=== PATIENT | male | born 1945 | race Caucasian/White ===

== ENCOUNTER 2021-07-12 10:00 | Inpatient (IN) ==
[2021-07-12 10:44] LABS: Basophils % 0.6 % (0.0-0.8); Eosinophils # 0.2 10*3/uL (0.0-0.87); Eosinophils % 4.6 % (0.00-10.9); Hemoglobin 7.6 GM/DL (14.0-18.0); Immature Granulocytes % 0.6 %; Immature Granulocytes Absolute 0.02 #; Lymphocytes # 0.5 10*3/uL (1.4-4.0); Lymphocytes % 15.7 % (21.2-54.2); Mean Corpuscular HGB Conc 31.7 GM/DL (32-36); Mean Corpuscular Volume 81.9 FL (87-102); Mean Platelet Volume 8.1 FL (9.6-12.0); Monocytes % 14.2 % (1.7-12.7); Neutrophils % 64.3 % (38.7-73.9); Platelet Count 220 T/CUMM (130-400); Red Blood Count 2.93 MC/CUMM (3.8-5.5); White Blood Count 3.3 T/CUMM (4-12)
[2021-07-12 11:02] LABS: Calcium 8.4 MG/DL (8.5-10.1); Osmolality,Calculated 268.2 MOS/KG (273-304); Potassium 3.2 MMOL/L (3.5-5.1)
[2021-07-12] MEDS ORDERED: DOCUSATE SODIUM 100 MG CAPSULE PO PRN (14:11)
[2021-07-12] MEDS ORDERED: SIMETHICONE CHEW 125 MG TABLET PO PRN (14:11)
[2021-07-12] MEDS ORDERED: GLUCAGON 1 MG VIAL IM PRN (14:11)
[2021-07-12] MEDS ORDERED: hydrALAZINE 20 MG/1 ML VIAL IV PRN (14:11)
[2021-07-12] MEDS ORDERED: ONDANSETRON 4 MG/2 ML VIAL IV PRN (14:11)
[2021-07-12] MEDS ORDERED: ACETAMINOPHEN 325 MG TABLET PO PRN (14:11)
[2021-07-12] MEDS ORDERED: cloNIDine 0.1 MG TABLET PO PRN (14:19)
[2021-07-12] MEDS ORDERED: MAGNESIUM SULF RIDER 2 GM/50 ML PREMIX IV PRN (14:30)
[2021-07-12] MEDS ORDERED: MAGNESIUM SULF RIDER 4 GM/100 ML PREMIX IV PRN (14:30)
[2021-07-12] MEDS ORDERED: DEXTROSE 10% 25 GM/250 ML BAG IV PRN (14:32)
[2021-07-12 14:38] LABS: Albumin 2.5 G/DL (3.4-5.0); Bilirubin,Direct 0.19 MG/DL (0.0-0.20); Bilirubin,Indirect 0.3 MG/DL (0.0-1.0); Bilirubin,Total 0.5 MG/DL (0.20-1.00); Ferritin 43.9 ng/mL (26-388); Total Protein 5.9 G/DL (6.4-8.2)
[2021-07-12] MEDS ORDERED: POTASSIUM CHLORIDE 20 MEQ TABLET PO ONE (14:57)
[2021-07-12] MEDS: FAMOTIDINE 20 MG TABLET PO SCH ×2 (15:05→20:43)
[2021-07-12] MEDS: CHOLECALCIFEROL 5,000 UNIT TABLET PO SCH ×2 (15:06→20:42)
[2021-07-12] MEDS: PANTOPRAZOLE 40 MG TABLET PO SCH (15:06)
[2021-07-12] MEDS: ASCORBIC ACID 500 MG TABLET PO SCH ×2 (15:06→20:42)
[2021-07-12] MEDS: ZINC GLUCONATE 50 MG TABLET PO SCH (15:06)
[2021-07-12] MEDS: AZITHROMYCIN INJ 500 MG in SODIUM CHLORIDE 0.9% 250 ML IV SCH (15:06)
[2021-07-12] MEDS: CETIRIZINE 10 MG TABLET PO SCH (15:07)
[2021-07-12 15:36] LABS: Basophils % 0.8 % (0.0-0.8); Eosinophils # 0.1 10*3/uL (0.0-0.87); Eosinophils % 5.3 % (0.00-10.9); Hematocrit 21.7 VOL% (42.0-52.0); Hemoglobin 6.9 GM/DL (14.0-18.0); Immature Granulocytes % 0.4 %; Immature Granulocytes Absolute 0.01 #; Lymphocytes # 0.6 10*3/uL (1.4-4.0); Lymphocytes % 21.8 % (21.2-54.2); Mean Corpuscular HGB Conc 31.8 GM/DL (32-36); Mean Corpuscular Volume 81.3 FL (87-102); Mean Platelet Volume 7.5 FL (9.6-12.0); Monocytes % 13.4 % (1.7-12.7); Neutrophils % 58.3 % (38.7-73.9); Platelet Count 177 T/CUMM (130-400); Red Blood Count 2.67 MC/CUMM (3.8-5.5); White Blood Count 2.6 T/CUMM (4-12)
[2021-07-12] MEDS: IVERMECTIN 3 MG TABLET PO SCH (16:05)
[2021-07-12] MEDS: methylPREDNISolone SOD SUC 40 MG/1 ML VIAL IV SCH (16:06)
[2021-07-12] MEDS: cefTRIAXone 1,000 MG in SODIUM CHLORIDE 0.9% 100 ML IV SCH (16:06)
[2021-07-12] MEDS: ISOSORBIDE MONONITRATE 30 MG TABLET PO SCH (16:06)
[2021-07-12] MEDS: LACTATED RINGERS 1,000 ML IV SCH (16:08)
[2021-07-12 16:18] LABS: Eosinophils 8 % (0-10); Lymphocytes 17 % (20-55); Platelet Estimate Adequate; Segmented Neutrophils 63 % (50-85); Total Cells Counted 100
[2021-07-12 16:19] LABS: Hypochromia 2+; Ovalocytes Few
[2021-07-12] MEDS: CALCIUM (CARBONATE)/VITAMIN D 600 MG-400 UNIT TABLET PO SCH (20:42)
[2021-07-12] MEDS: ROSUVASTATIN 10 MG TABLET PO SCH (20:42)
[2021-07-12] MEDS: carvediloL 25 MG TABLET PO SCH (20:43)
[2021-07-12] MEDS: MELATONIN 3 MG TABLET PO SCH (20:43)
[2021-07-12] MEDS: GABAPENTIN 100 MG CAPSULE PO SCH (20:43)
[2021-07-13] MEDS: methylPREDNISolone SOD SUC 40 MG/1 ML VIAL IV SCH ×3 (00:33→15:43)
[2021-07-13 04:59] LABS: Hematocrit 20.7 VOL% (42.0-52.0); Hemoglobin 6.6 GM/DL (14.0-18.0); Immature Granulocytes % 0.4 %; Immature Granulocytes Absolute 0.01 #; Lymphocytes # 0.3 10*3/uL (1.4-4.0); Mean Corpuscular HGB Conc 31.9 GM/DL (32-36); Mean Corpuscular Volume 81.5 FL (87-102); Mean Platelet Volume 7.7 FL (9.6-12.0); Neutrophils % 82.6 % (38.7-73.9); Platelet Count 194 T/CUMM (130-400); Red Blood Count 2.54 MC/CUMM (3.8-5.5); Red Cell Distribution Width 13.7 % (9.3-17.3); White Blood Count 2.4 T/CUMM (4-12)
[2021-07-13 05:22] LABS: Platelet Estimate Normal
[2021-07-13 05:23] LABS: Anisocytosis 1+
[2021-07-13 05:25] LABS: Albumin 2.4 G/DL (3.4-5.0); Bilirubin,Total 0.8 MG/DL (0.20-1.00); Ferritin 48.8 ng/mL (26-388); Osmolality,Calculated 270.2 MOS/KG (273-304); Potassium 3.8 MMOL/L (3.5-5.1); Total Protein 6.1 G/DL (6.4-8.2)
[2021-07-13] MEDS: LACTATED RINGERS 1,000 ML IV SCH ×2 (05:59→20:41)
[2021-07-13] MEDS ORDERED: SODIUM CHLORIDE 0.9% 1,000 ML IV PRN (07:22)
[2021-07-13] MEDS: ASCORBIC ACID 500 MG TABLET PO SCH ×2 (10:01→20:34)
[2021-07-13] MEDS: ZINC GLUCONATE 50 MG TABLET PO SCH (10:02)
[2021-07-13] MEDS: FAMOTIDINE 20 MG TABLET PO SCH ×2 (10:02→20:35)
[2021-07-13] MEDS: CETIRIZINE 10 MG TABLET PO SCH (10:02)
[2021-07-13] MEDS: COENZYME Q10 100 MG CAPSULE PO SCH (10:02)
[2021-07-13] MEDS: CHOLECALCIFEROL 5,000 UNIT TABLET PO SCH ×2 (10:03→20:34)
[2021-07-13] MEDS: ISOSORBIDE MONONITRATE 30 MG TABLET PO SCH (10:03)
[2021-07-13] MEDS: carvediloL 25 MG TABLET PO SCH ×2 (10:03→20:34)
[2021-07-13] MEDS: CALCIUM (CARBONATE)/VITAMIN D 600 MG-400 UNIT TABLET PO SCH ×2 (10:03→20:34)
[2021-07-13] MEDS: PANTOPRAZOLE 40 MG TABLET PO SCH (10:03)
[2021-07-13] MEDS: IVERMECTIN 3 MG TABLET PO SCH (10:03)
[2021-07-13] MEDS: AZITHROMYCIN INJ 500 MG in SODIUM CHLORIDE 0.9% 250 ML IV SCH (10:09)
[2021-07-13] MEDS: Cyanocobalamin (Vitamin B-12) [Vitamin B-12] 5,000 mcg Tablet, S SL SCH (11:07)
[2021-07-13 19:48] LABS: Hematocrit 27.5 VOL% (42.0-52.0)
[2021-07-13 19:51] LABS: Hemoglobin 8.9 GM/DL (14.0-18.0)
[2021-07-13] MEDS: ROSUVASTATIN 10 MG TABLET PO SCH (20:33)
[2021-07-13] MEDS: GABAPENTIN 100 MG CAPSULE PO SCH (20:34)
[2021-07-13] MEDS: MELATONIN 3 MG TABLET PO SCH (20:34)
[2021-07-13] MEDS: cefTRIAXone 1,000 MG in SODIUM CHLORIDE 0.9% 100 ML IV SCH (20:35)
[2021-07-13] MEDS ORDERED: REMDESIVIR 200 MG in SODIUM CHLORIDE 0.9% 210 ML IV ONE (21:00)
[2021-07-13] MEDS: ALBUTEROL 2.5 MG/3 ML NEB RESP TX SCH (21:28)
[2021-07-14] MEDS: methylPREDNISolone SOD SUC 40 MG/1 ML VIAL IV SCH ×3 (00:04→20:45)
[2021-07-14 06:12] LABS: Hematocrit 24.8 VOL% (42.0-52.0); Hemoglobin 8.1 GM/DL (14.0-18.0); Immature Granulocytes % 1.3 %; Immature Granulocytes Absolute 0.09 #; Lymphocytes # 0.5 10*3/uL (1.4-4.0); Lymphocytes % 7.8 % (21.2-54.2); Mean Corpuscular HGB Conc 32.7 GM/DL (32-36); Mean Corpuscular Volume 81.8 FL (87-102); Mean Platelet Volume 8.3 FL (9.6-12.0); Monocytes % 3.3 % (1.7-12.7); Neutrophils % 87.6 % (38.7-73.9); Platelet Count 239 T/CUMM (130-400); Red Blood Count 3.03 MC/CUMM (3.8-5.5); Red Cell Distribution Width 14.3 % (9.3-17.3); White Blood Count 6.9 T/CUMM (4-12)
[2021-07-14 06:38] LABS: Albumin 2.4 G/DL (3.4-5.0); Bilirubin,Total 0.7 MG/DL (0.20-1.00); Calcium 7.9 MG/DL (8.5-10.1); Osmolality,Calculated 281.8 MOS/KG (273-304); Potassium 3.6 MMOL/L (3.5-5.1); Total Protein 5.9 G/DL (6.4-8.2)
[2021-07-14] MEDS: ASCORBIC ACID 500 MG TABLET PO SCH ×2 (08:44→20:45)
[2021-07-14] MEDS: COENZYME Q10 100 MG CAPSULE PO SCH (08:44)
[2021-07-14] MEDS: ISOSORBIDE MONONITRATE 30 MG TABLET PO SCH (08:45)
[2021-07-14] MEDS: ZINC GLUCONATE 50 MG TABLET PO SCH (08:45)
[2021-07-14] MEDS: FAMOTIDINE 20 MG TABLET PO SCH ×2 (08:45→20:45)
[2021-07-14] MEDS: IVERMECTIN 3 MG TABLET PO SCH (08:46)
[2021-07-14] MEDS: CETIRIZINE 10 MG TABLET PO SCH (08:46)
[2021-07-14] MEDS: CALCIUM (CARBONATE)/VITAMIN D 600 MG-400 UNIT TABLET PO SCH ×2 (08:46→20:45)
[2021-07-14] MEDS: PANTOPRAZOLE 40 MG TABLET PO SCH (08:46)
[2021-07-14] MEDS: CHOLECALCIFEROL 5,000 UNIT TABLET PO SCH ×2 (08:46→20:45)
[2021-07-14] MEDS: carvediloL 25 MG TABLET PO SCH ×2 (08:46→20:45)
[2021-07-14] MEDS: REMDESIVIR 100 MG in SODIUM CHLORIDE 0.9% 100 ML IV SCH (08:48)
[2021-07-14] MEDS: Cyanocobalamin (Vitamin B-12) [Vitamin B-12] 5,000 mcg Tablet, S SL SCH (09:38)
[2021-07-14] MEDS ORDERED: FUROSEMIDE 40 MG/4 ML VIAL IV ONE (09:56)
[2021-07-14] MEDS: LACTATED RINGERS 1,000 ML IV SCH (10:01)
[2021-07-14] MEDS: AZITHROMYCIN INJ 500 MG in SODIUM CHLORIDE 0.9% 250 ML IV SCH (10:47)
[2021-07-14] MEDS: PIPERACILLIN/TAZOBACTAM 3,375 MG in SODIUM CHLORIDE 0.9% 100 ML IV SCH ×2 (12:06→17:35)
[2021-07-14] MEDS ORDERED: hydroCHLOROthiazide 25 MG TABLET PO SCH (15:00)
[2021-07-14] MEDS: OLMESARTAN 20 MG TABLET PO SCH (16:00)
[2021-07-14] MEDS: MELATONIN 3 MG TABLET PO SCH (20:44)
[2021-07-14] MEDS: ROSUVASTATIN 10 MG TABLET PO SCH (20:44)
[2021-07-14] MEDS: ALBUTEROL INHALER 18 GM INH SCH (20:45)
[2021-07-14] MEDS: GABAPENTIN 100 MG CAPSULE PO SCH (20:45)
[2021-07-14] MEDS: ALBUTEROL 2.5 MG/3 ML NEB RESP TX SCH ×2 (22:22→23:04)
[2021-07-15] MEDS: ALBUTEROL INHALER 18 GM INH SCH ×4 (00:34→20:07)
[2021-07-15] MEDS: PIPERACILLIN/TAZOBACTAM 3,375 MG in SODIUM CHLORIDE 0.9% 100 ML IV SCH ×3 (02:31→18:53)
[2021-07-15 07:47] LABS: Hematocrit 25.4 VOL% (42.0-52.0); Hemoglobin 8.4 GM/DL (14.0-18.0); Immature Granulocytes % 1.1 %; Immature Granulocytes Absolute 0.07 #; Lymphocytes # 0.5 10*3/uL (1.4-4.0); Lymphocytes % 7.7 % (21.2-54.2); Mean Corpuscular HGB Conc 33.1 GM/DL (32-36); Mean Corpuscular Volume 80.4 FL (87-102); Mean Platelet Volume 8.3 FL (9.6-12.0); Monocytes % 3.6 % (1.7-12.7); Neutrophils % 87.6 % (38.7-73.9); Platelet Count 259 T/CUMM (130-400); Red Blood Count 3.16 MC/CUMM (3.8-5.5); Red Cell Distribution Width 14.5 % (9.3-17.3); White Blood Count 6.6 T/CUMM (4-12)
[2021-07-15 08:05] LABS: Albumin 2.4 G/DL (3.4-5.0); Bilirubin,Total 0.8 MG/DL (0.20-1.00); Calcium 7.9 MG/DL (8.5-10.1); Osmolality,Calculated 284.5 MOS/KG (273-304); Potassium 2.9 MMOL/L (3.5-5.1); Total Protein 5.9 G/DL (6.4-8.2)
[2021-07-15] MEDS: COENZYME Q10 100 MG CAPSULE PO SCH (09:05)
[2021-07-15] MEDS: REMDESIVIR 100 MG in SODIUM CHLORIDE 0.9% 100 ML IV SCH (09:05)
[2021-07-15] MEDS: CALCIUM (CARBONATE)/VITAMIN D 600 MG-400 UNIT TABLET PO SCH ×2 (09:05→20:05)
[2021-07-15] MEDS: FAMOTIDINE 20 MG TABLET PO SCH ×2 (09:06→20:06)
[2021-07-15] MEDS: ZINC GLUCONATE 50 MG TABLET PO SCH (09:06)
[2021-07-15] MEDS: CHOLECALCIFEROL 5,000 UNIT TABLET PO SCH ×2 (09:06→20:06)
[2021-07-15] MEDS: CETIRIZINE 10 MG TABLET PO SCH (09:06)
[2021-07-15] MEDS: ASCORBIC ACID 500 MG TABLET PO SCH ×2 (09:06→20:06)
[2021-07-15] MEDS: ISOSORBIDE MONONITRATE 30 MG TABLET PO SCH (09:06)
[2021-07-15] MEDS: methylPREDNISolone SOD SUC 40 MG/1 ML VIAL IV SCH ×2 (09:07→20:06)
[2021-07-15] MEDS: PANTOPRAZOLE 40 MG TABLET PO SCH (09:07)
[2021-07-15] MEDS: carvediloL 25 MG TABLET PO SCH ×2 (09:07→20:05)
[2021-07-15] MEDS: Cyanocobalamin (Vitamin B-12) [Vitamin B-12] 5,000 mcg Tablet, S SL SCH (09:09)
[2021-07-15] MEDS: AZITHROMYCIN INJ 500 MG in SODIUM CHLORIDE 0.9% 250 ML IV SCH (10:24)
[2021-07-15] MEDS ORDERED: POTASSIUM CHLORIDE 20 MEQ TABLET PO PRN (10:36)
[2021-07-15] MEDS: POTASSIUM CHLORIDE 20 MEQ TABLET PO SCH ×2 (11:49→16:45)
[2021-07-15] MEDS: OLMESARTAN 20 MG TABLET PO SCH (16:45)
[2021-07-15] MEDS: GABAPENTIN 100 MG CAPSULE PO SCH (20:05)
[2021-07-15] MEDS: ROSUVASTATIN 10 MG TABLET PO SCH (20:05)
[2021-07-15] MEDS: MELATONIN 3 MG TABLET PO SCH (20:05)
[2021-07-16] MEDS: ALBUTEROL INHALER 18 GM INH SCH (02:13)
[2021-07-16] MEDS: PIPERACILLIN/TAZOBACTAM 3,375 MG in SODIUM CHLORIDE 0.9% 100 ML IV SCH (02:13)
[2021-07-16 05:35] LABS: Hematocrit 27.1 VOL% (42.0-52.0); Hemoglobin 8.7 GM/DL (14.0-18.0); Immature Granulocytes % 1.2 %; Immature Granulocytes Absolute 0.06 #; Lymphocytes # 0.4 10*3/uL (1.4-4.0); Lymphocytes % 8.5 % (21.2-54.2); Mean Corpuscular HGB Conc 32.1 GM/DL (32-36); Mean Corpuscular Volume 82.1 FL (87-102); Mean Platelet Volume 8.4 FL (9.6-12.0); Monocytes % 5.6 % (1.7-12.7); Neutrophils % 84.7 % (38.7-73.9); Platelet Count 278 T/CUMM (130-400); Red Cell Distribution Width 14.4 % (9.3-17.3); White Blood Count 5.2 T/CUMM (4-12)
[2021-07-16 05:58] LABS: Albumin 2.2 G/DL (3.4-5.0); Bilirubin,Total 1.4 MG/DL (0.20-1.00); Calcium 7.8 MG/DL (8.5-10.1); Osmolality,Calculated 288.5 MOS/KG (273-304); Potassium 3.4 MMOL/L (3.5-5.1); Total Protein 5.6 G/DL (6.4-8.2)
[2021-07-16 08:43] VITALS: BP 173/72
[2021-07-16] MEDS: carvediloL 25 MG TABLET PO SCH (09:16)
[2021-07-16] MEDS: ASCORBIC ACID 500 MG TABLET PO SCH (09:16)
[2021-07-16] MEDS: ZINC GLUCONATE 50 MG TABLET PO SCH (09:17)
[2021-07-16] MEDS: FAMOTIDINE 20 MG TABLET PO SCH (09:17)
[2021-07-16] MEDS: ISOSORBIDE MONONITRATE 30 MG TABLET PO SCH (09:17)
[2021-07-16] MEDS: COENZYME Q10 100 MG CAPSULE PO SCH (09:17)
[2021-07-16] MEDS: CETIRIZINE 10 MG TABLET PO SCH (09:17)
[2021-07-16] MEDS: PANTOPRAZOLE 40 MG TABLET PO SCH (09:17)
[2021-07-16] MEDS: CHOLECALCIFEROL 5,000 UNIT TABLET PO SCH (09:18)
[2021-07-16] MEDS: CALCIUM (CARBONATE)/VITAMIN D 600 MG-400 UNIT TABLET PO SCH (09:18)
[2021-07-16] MEDS: methylPREDNISolone SOD SUC 40 MG/1 ML VIAL IV SCH (09:18)
[2021-07-16] MEDS: Cyanocobalamin (Vitamin B-12) [Vitamin B-12] 5,000 mcg Tablet, S SL SCH (09:23)
[2021-07-18 12:12] LABS: QuantiFERON-Tb Gold Pl Negative (Negative); TB2 Ag Minus Result 0.02 IU/mL
== END 2021-07-16 12:20 | disposition home or self-care (01) | DRG 177 ==
LOC: N.ED 10:00 → N.EDINP 14:11 → SUATTDRO 14:11 → N.3E 15:05
PROVIDERS: ADMIT Internal Medicine; ATTEND Internal Medicine

== ENCOUNTER 2021-11-26 09:31 | Inpatient (IN) ==
[2021-11-26 10:57] LABS: Basophils % 0.6 % (0.0-0.8); Eosinophils # 0.4 10*3/uL (0.0-0.87); Eosinophils % 6.5 % (0.00-10.9); Hematocrit 26.6 VOL% (42.0-52.0); Hemoglobin 8.7 GM/DL (14.0-18.0); Immature Granulocytes % 0.5 %; Immature Granulocytes Absolute 0.03 #; Lymphocytes # 0.5 10*3/uL (1.4-4.0); Lymphocytes % 7.3 % (21.2-54.2); Mean Corpuscular HGB Conc 32.7 GM/DL (32-36); Mean Corpuscular Volume 81.1 FL (87-102); Mean Platelet Volume 7.6 FL (9.6-12.0); Monocytes # 0.4 10*3/uL (0.11-0.8); Monocytes % 6.6 % (1.7-12.7); Neutrophils % 78.5 % (38.7-73.9); Platelet Count 336 T/CUMM (130-400); Red Blood Count 3.28 MC/CUMM (3.8-5.5); Red Cell Distribution Width 15.1 % (9.3-17.3); White Blood Count 6.2 T/CUMM (4-12)
[2021-11-26 11:27] LABS: Albumin 2.3 G/DL (3.4-5.0); Bilirubin,Total 1.3 MG/DL (0.20-1.00); Calcium 9.2 MG/DL (8.5-10.1); Osmolality,Calculated 268.7 MOS/KG (273-304); Potassium 3.9 MMOL/L (3.5-5.1); Total Protein 6.4 G/DL (6.4-8.2)
[2021-11-26] MEDS ORDERED: LEVOFLOXACIN INJ 500 MG/100 ML PREMIX IV STA (12:12)
[2021-11-26] MEDS ORDERED: methylPREDNISolone SOD SUC 125 MG/2 ML VIAL IV STA (12:12)
[2021-11-26 12:35] LABS: Arterial Base Excess iSTAT -2 MMOL/L (-2.5-2.5); Arterial Bicarbonate iSTAT 21.2 MMOL/L (20-26); Arterial O2 Saturation iSTAT 96 % (95-100); Arterial PCO2 iSTAT 29 MM HG (35-48); Arterial PO2 iSTAT 75 MM HG (80-95); Arterial Total CO2 iSTAT 22 MMO/L (23-27); Arterial pH iSTAT 7.476 (7.35-7.45)
[2021-11-26 13:04] LABS: Platelet Estimate Normal
[2021-11-26 13:05] LABS: Anisocytosis 1+
[2021-11-26] MEDS ORDERED: AZITHROMYCIN INJ 500 MG in SODIUM CHLORIDE 0.9% 250 ML IV ONE (14:21)
[2021-11-26] MEDS ORDERED: ONDANSETRON 4 MG/2 ML VIAL IV PRN (14:23)
[2021-11-26] MEDS ORDERED: ACETAMINOPHEN 325 MG TABLET PO PRN (14:23)
[2021-11-26] MEDS ORDERED: GLUCAGON 1 MG VIAL IM PRN (14:23)
[2021-11-26] MEDS ORDERED: cloNIDine 0.1 MG TABLET PO PRN (14:29)
[2021-11-26] MEDS ORDERED: DEXTROSE 10% 250 ML BAG IV PRN (14:36)
[2021-11-26] MEDS: SODIUM CHLORIDE 0.9% 1,000 ML IV SCH (15:46)
[2021-11-26] MEDS: hydrALAZINE 25 MG TABLET PO SCH ×2 (15:54→20:20)
[2021-11-26] MEDS: SUCRALFATE 1 GM TABLET PO SCH ×2 (18:03→20:20)
[2021-11-26] MEDS: ISOSORBIDE MONONITRATE 120 MG PO SCH (18:49)
[2021-11-26] MEDS: ALBUTEROL INHALER 18 GM INH SCH (20:20)
[2021-11-26] MEDS: ROSUVASTATIN 10 MG TABLET PO SCH (20:20)
[2021-11-26] MEDS: POTASSIUM CHLORIDE 10 MEQ TABLET PO SCH (20:20)
[2021-11-26] MEDS: ASCORBIC ACID 500 MG TABLET PO SCH (20:20)
[2021-11-26] MEDS: carvediloL 25 MG TABLET PO SCH (20:20)
[2021-11-26] MEDS: PANTOPRAZOLE 40 MG TABLET PO SCH (20:20)
[2021-11-26] MEDS: DOCUSATE SODIUM 100 MG CAPSULE PO SCH (20:20)
[2021-11-26] MEDS ORDERED: FAMOTIDINE 20 MG TABLET PO SCH (21:00)
[2021-11-26] MEDS: MELATONIN 3 MG TABLET PO PRN (21:40)
[2021-11-27] MEDS: ALBUTEROL INHALER 18 GM INH SCH ×2 (01:15→10:56)
[2021-11-27] MEDS: SODIUM CHLORIDE 0.9% 1,000 ML IV SCH (03:15)
[2021-11-27 05:10] LABS: Hematocrit 24.2 VOL% (42.0-52.0); Hemoglobin 7.9 GM/DL (14.0-18.0); Immature Granulocytes % 0.5 %; Immature Granulocytes Absolute 0.02 #; Lymphocytes # 0.3 10*3/uL (1.4-4.0); Lymphocytes % 7.7 % (21.2-54.2); Mean Corpuscular HGB Conc 32.6 GM/DL (32-36); Mean Corpuscular Volume 80.4 FL (87-102); Mean Platelet Volume 7.7 FL (9.6-12.0); Monocytes # 0.1 10*3/uL (0.11-0.8); Monocytes % 3.2 % (1.7-12.7); Neutrophils % 88.6 % (38.7-73.9); Platelet Count 240 T/CUMM (130-400); Red Blood Count 3.01 MC/CUMM (3.8-5.5); Red Cell Distribution Width 14.8 % (9.3-17.3); White Blood Count 3.8 T/CUMM (4-12)
[2021-11-27 05:31] LABS: Calcium 8.8 MG/DL (8.5-10.1); Osmolality,Calculated 272.7 MOS/KG (273-304); Potassium 3.7 MMOL/L (3.5-5.1)
[2021-11-27 08:10] LABS: Mucus,Urine Occasional /LPF (Occasional); RBC,Urine 36 /HPF (0-4)
[2021-11-27 08:11] LABS: Bilirubin,Urine Negative (Negative); Blood, Urine Large mg/dL (Negative); Glucose,Urine (UA) Negative (Negative); Ketones,Urine Negative (Negative); Nitrite,Urine Negative (Negative); Protein,Urine 30 mg/dL (Negative); Urine Appearance Clear (Clear); Urine Color Yellow (Yellow); Urine Specific Gravity 1.015 (1.001-1.035); Urine Urobilinogen 0.2 eU/dL (<2.0); Urine pH 5.5 (4.5-8.0)
[2021-11-27] MEDS ORDERED: CETIRIZINE 10 MG TABLET PO SCH (09:00)
[2021-11-27] MEDS ORDERED: methylPREDNISolone SOD SUC 40 MG/1 ML VIAL IV SCH (09:00)
[2021-11-27] MEDS ORDERED: cefTRIAXone 2,000 MG in SODIUM CHLORIDE 0.9% 100 ML IV SCH (09:00)
[2021-11-27] MEDS: hydrALAZINE 25 MG TABLET PO SCH ×3 (09:02→20:30)
[2021-11-27] MEDS: BACILLUS COAGULANS CAPLET PO SCH (09:02)
[2021-11-27] MEDS: CALCIUM (CARBONATE)/VITAMIN D 600 MG-400 UNIT TABLET PO SCH (09:02)
[2021-11-27] MEDS: POTASSIUM CHLORIDE 10 MEQ TABLET PO SCH ×2 (09:02→20:30)
[2021-11-27] MEDS: TAMSULOSIN 0.4 MG CAPSULE PO SCH (09:02)
[2021-11-27] MEDS: CHOLECALCIFEROL 1,000 UNIT TABLET PO SCH (09:02)
[2021-11-27] MEDS: carvediloL 25 MG TABLET PO SCH ×2 (09:03→20:30)
[2021-11-27] MEDS: IRON (CARBONYL)/VIT C/B12/FA TABLET PO SCH (09:03)
[2021-11-27] MEDS: SUCRALFATE 1 GM TABLET PO SCH ×4 (09:03→20:30)
[2021-11-27] MEDS: ASPIRIN EC 81 MG TABLET PO SCH (09:03)
[2021-11-27] MEDS: AZITHROMYCIN 250 MG TABLET PO SCH (09:03)
[2021-11-27] MEDS: PANTOPRAZOLE 40 MG TABLET PO SCH ×2 (09:03→20:30)
[2021-11-27] MEDS: DOCUSATE SODIUM 100 MG CAPSULE PO SCH ×2 (09:03→20:30)
[2021-11-27] MEDS: ASCORBIC ACID 500 MG TABLET PO SCH ×2 (09:03→20:30)
[2021-11-27] MEDS: POLYETHYLENE GLYCOL POWDER 17 GM PACK PO SCH (09:04)
[2021-11-27] MEDS: methylPREDNISolone SOD SUC 40 MG/1 ML VIAL IV SCH ×2 (10:57→20:30)
[2021-11-27] MEDS: ALBUTEROL/IPRATROPIUM 3 ML NEB RESP TX SCH ×2 (14:40→19:47)
[2021-11-27] MEDS: ISOSORBIDE MONONITRATE 120 MG PO SCH (15:47)
[2021-11-27] MEDS: ROSUVASTATIN 10 MG TABLET PO SCH (20:30)
[2021-11-28] MEDS: ALBUTEROL/IPRATROPIUM 3 ML NEB RESP TX SCH ×4 (01:10→19:52)
[2021-11-28 05:37] LABS: Hematocrit 25.4 VOL% (42.0-52.0); Hemoglobin 8.3 GM/DL (14.0-18.0); Immature Granulocytes % 1.4 %; Immature Granulocytes Absolute 0.11 #; Lymphocytes # 0.4 10*3/uL (1.4-4.0); Lymphocytes % 5.5 % (21.2-54.2); Mean Corpuscular HGB Conc 32.7 GM/DL (32-36); Mean Corpuscular Volume 80.9 FL (87-102); Mean Platelet Volume 8.1 FL (9.6-12.0); Monocytes # 0.2 10*3/uL (0.11-0.8); Monocytes % 2.9 % (1.7-12.7); Neutrophils % 90.2 % (38.7-73.9); Platelet Count 320 T/CUMM (130-400); Red Blood Count 3.14 MC/CUMM (3.8-5.5)
[2021-11-28 05:44] LABS: INR 1.1; PT Patient Result 11.8 SECS (10.5-12.0); Partial Thromboplastin Time 37.6 SECS (23.7-32.9)
[2021-11-28 06:01] LABS: Calcium 9.2 MG/DL (8.5-10.1); Osmolality,Calculated 281.2 MOS/KG (273-304); Potassium 3.7 MMOL/L (3.5-5.1)
[2021-11-28] MEDS ORDERED: BENZONATATE 100 MG CAPSULE PO ONE (07:30)
[2021-11-28] MEDS ORDERED: MEPERIDINE 50 MG/1 ML VIAL IM ONE (07:30)
[2021-11-28] MEDS ORDERED: diphenhydrAMINE 50 MG/1 ML VIAL IM ONE (07:30)
[2021-11-28] MEDS ORDERED: LIDOCAINE 2% 20 ML VIAL RESP TX ONE (08:00)
[2021-11-28] MEDS ORDERED: LIDOCAINE 1% 20 ML VIAL MISC INJ ONE (08:00)
[2021-11-28] MEDS ORDERED: LIDOCAINE 2% VISCOUS 100 ML BOTTLE SWISH/SPIT ONE (08:00)
[2021-11-28] MEDS ORDERED: MIDAZOLAM 2 MG/2 ML VIAL ONE (08:23)
[2021-11-28 10:24] LABS: Arterial Base Excess iSTAT -4 MMOL/L (-2.5-2.5); Arterial Bicarbonate iSTAT 19.9 MMOL/L (20-26); Arterial O2 Saturation iSTAT 95 % (95-100); Arterial PCO2 iSTAT 30 MM HG (35-48); Arterial PO2 iSTAT 73 MM HG (80-95); Arterial Total CO2 iSTAT 21 MMO/L (23-27); Arterial pH iSTAT 7.436 (7.35-7.45)
[2021-11-28] MEDS: methylPREDNISolone SOD SUC 40 MG/1 ML VIAL IV SCH ×2 (11:43→23:56)
[2021-11-28] MEDS: cefTRIAXone 1,000 MG in SODIUM CHLORIDE 0.9% 100 ML IV SCH (11:43)
[2021-11-28] MEDS: CHOLECALCIFEROL 1,000 UNIT TABLET PO SCH (11:44)
[2021-11-28] MEDS: ASPIRIN EC 81 MG TABLET PO SCH (11:44)
[2021-11-28] MEDS: CALCIUM (CARBONATE)/VITAMIN D 600 MG-400 UNIT TABLET PO SCH (11:44)
[2021-11-28] MEDS: amLODIPine 10 MG TABLET PO SCH (11:44)
[2021-11-28] MEDS: ASCORBIC ACID 500 MG TABLET PO SCH ×2 (11:44→21:15)
[2021-11-28] MEDS: hydrALAZINE 25 MG TABLET PO SCH ×3 (11:44→21:15)
[2021-11-28] MEDS: SUCRALFATE 1 GM TABLET PO SCH ×4 (11:44→21:15)
[2021-11-28] MEDS: BACILLUS COAGULANS CAPLET PO SCH (11:44)
[2021-11-28] MEDS: TAMSULOSIN 0.4 MG CAPSULE PO SCH (11:45)
[2021-11-28] MEDS: IRON (CARBONYL)/VIT C/B12/FA TABLET PO SCH (11:45)
[2021-11-28] MEDS: DOCUSATE SODIUM 100 MG CAPSULE PO SCH ×2 (11:45→21:16)
[2021-11-28] MEDS: PANTOPRAZOLE 40 MG TABLET PO SCH ×2 (11:45→21:15)
[2021-11-28] MEDS: AZITHROMYCIN 250 MG TABLET PO SCH (11:45)
[2021-11-28] MEDS: POTASSIUM CHLORIDE 10 MEQ TABLET PO SCH ×2 (11:46→21:16)
[2021-11-28] MEDS: carvediloL 25 MG TABLET PO SCH ×2 (11:46→21:16)
[2021-11-28] MEDS: POLYETHYLENE GLYCOL POWDER 17 GM PACK PO SCH (12:01)
[2021-11-28] MEDS: ISOSORBIDE MONONITRATE 120 MG PO SCH (17:06)
[2021-11-28] MEDS: ROSUVASTATIN 10 MG TABLET PO SCH (21:15)
[2021-11-28] MEDS: MELATONIN 3 MG TABLET PO PRN (21:16)
[2021-11-29 05:26] LABS: Hematocrit 26.5 VOL% (42.0-52.0); Hemoglobin 8.7 GM/DL (14.0-18.0); Immature Granulocytes % 1.3 %; Immature Granulocytes Absolute 0.07 #; Lymphocytes # 0.3 10*3/uL (1.4-4.0); Lymphocytes % 5.2 % (21.2-54.2); Mean Corpuscular HGB Conc 32.8 GM/DL (32-36); Mean Corpuscular Volume 80.3 FL (87-102); Mean Platelet Volume 7.9 FL (9.6-12.0); Monocytes # 0.1 10*3/uL (0.11-0.8); Neutrophils % 91.5 % (38.7-73.9); Platelet Count 379 T/CUMM (130-400); White Blood Count 5.6 T/CUMM (4-12)
[2021-11-29 05:48] LABS: Albumin 2.2 G/DL (3.4-5.0); Bilirubin,Total 0.7 MG/DL (0.20-1.00); Calcium 9.2 MG/DL (8.5-10.1); Osmolality,Calculated 283.1 MOS/KG (273-304); Potassium 3.8 MMOL/L (3.5-5.1); Total Protein 6.2 G/DL (6.4-8.2)
[2021-11-29 06:15] LABS: Hypochromia Slight; Lymphocytes 5 % (20-55); Total Cells Counted 100
[2021-11-29 06:16] LABS: Microcytosis Slight; Platelet Estimate Normal
[2021-11-29] MEDS: ALBUTEROL/IPRATROPIUM 3 ML NEB RESP TX SCH (07:50)
[2021-11-29 11:08] LABS: Folate 23.42 NG/ML (5.38-24.0)
[2021-11-29] MEDS: IRON (CARBONYL)/VIT C/B12/FA TABLET PO SCH (11:17)
[2021-11-29] MEDS: BACILLUS COAGULANS CAPLET PO SCH (11:17)
[2021-11-29] MEDS: POTASSIUM CHLORIDE 10 MEQ TABLET PO SCH (11:17)
[2021-11-29] MEDS: AZITHROMYCIN 250 MG TABLET PO SCH (11:17)
[2021-11-29] MEDS: hydrALAZINE 25 MG TABLET PO SCH ×2 (11:17→14:16)
[2021-11-29] MEDS: ASPIRIN EC 81 MG TABLET PO SCH (11:18)
[2021-11-29] MEDS: amLODIPine 10 MG TABLET PO SCH (11:18)
[2021-11-29] MEDS: TAMSULOSIN 0.4 MG CAPSULE PO SCH (11:18)
[2021-11-29] MEDS: ASCORBIC ACID 500 MG TABLET PO SCH (11:18)
[2021-11-29] MEDS: PANTOPRAZOLE 40 MG TABLET PO SCH (11:18)
[2021-11-29] MEDS: CHOLECALCIFEROL 1,000 UNIT TABLET PO SCH (11:18)
[2021-11-29] MEDS: carvediloL 25 MG TABLET PO SCH (11:18)
[2021-11-29] MEDS: DOCUSATE SODIUM 100 MG CAPSULE PO SCH (11:19)
[2021-11-29] MEDS: SUCRALFATE 1 GM TABLET PO SCH ×2 (11:27→13:45)
[2021-11-29] MEDS: CALCIUM (CARBONATE)/VITAMIN D 600 MG-400 UNIT TABLET PO SCH (11:27)
[2021-11-29] MEDS: methylPREDNISolone SOD SUC 40 MG/1 ML VIAL IV SCH (11:32)
[2021-11-29] MEDS: POLYETHYLENE GLYCOL POWDER 17 GM PACK PO SCH (11:37)
[2021-11-29] MEDS: cefTRIAXone 1,000 MG in SODIUM CHLORIDE 0.9% 100 ML IV SCH (11:45)
[2021-11-29 12:04] VITALS: BP 163/68
[2021-11-29] MEDS: ISOSORBIDE MONONITRATE 120 MG PO SCH (14:16)
[2021-12-01 17:41] LABS: M. Tuberculosis PCR Result Negative (Negative); M. Tuberculosis PCR Source BRONCH WASH
[2021-12-03 02:56] LABS: Pyridoxal 5-Phosphate (PLP), P 5 mcg/L (5-50)
[2021-12-03 12:26] LABS: Copper, Serum 136 mcg/dL (73-129)
== END 2021-11-29 14:00 | disposition home or self-care (01) | DRG 204 ==
LOC: N.ED 09:31 → N.EDINP 13:20 → SUATTDRO 13:20 → N.TELES 14:55
PROVIDERS: ADMIT Internal Medicine; ATTEND Hospitalist